=== PATIENT | female | born 1935 | race Caucasian/White ===

== ENCOUNTER 2023-06-28 23:42 | Emergency (ER) | payer OTHER, SELFPAY ==
[2023-06-28 23:58] VITALS: BP 175/67
--- NOTE | 2023-06-29 02:17 | ED.GENMED ---
History of Present Illness
General
Chief Complaint: Fall
Source: patient
Time Seen by Provider: 06/29/23 01:32
Travel History
Have you had any contact with someone who has COVID-19?: No
Do you have any symptoms of coronavirus? Fever > 100 degrees, chills, cough, shortness of breath, sore throat, loss of taste or smell, muscle aches, or headache?: No
History of Present Illness
History of Present Illness:
This 88-year-old female presents to the emergency room for evaluation of a head injury. Patient was in the bathroom when she lost her balance and fell striking the back of her head. She had significant bleeding. She denies any loss of
consciousness. She denies any neck pain. Patient has been ambulatory since the injury.
Past History
Past History
ED Past Medical History: HTN, Hypercholesterolemia, Hypothyroidism and Other (Pernicious anemia, osteoporosis, Graves' ophthalmopathy)
ED Past Surgical History: Orthopedic (Right hip fracture with ORIF 2017, right femoral fracture 2018, epidural steroid injection C7-T1) and Other (Cataract extractions)
Social History
Tobacco: Non-smoker
Alcohol: None
Drug: None
Personal:
Living: with family
Employment: Retired
Family History
Family History: Other (Reviewed and noncontributory)
Phy Exam
Physical Exam
Physical Exam:
General: Awake, Alert, Oriented X3. No acute distress.
Vitals: unremarkable
Head: Stellate laceration occipital scalp with a cumulative length of about 6 cm
Eyes: Pupils equal, EOMI
Throat: Airway intact, no exudates
Neck: Trachea midline, no tenderness palpation along the cervical spine
Lungs: Clear and equal b/l
Heart: Regular rate, no murmurs
Abd: Soft, Nontender, No pulsatile mass
Neuro: Nonfocal
Skin: Warm, dry, no rash
Extremities: pulses equal b/l, no edema
Course
Orders/Labs/Results
Orders:
Orders
06/29/23 00:04
CT Head W/o Iv Contrast Urgent
Comment:
Reason For Exam: fall, head injury
Vital Signs
Initial and Last Documented VS:
Initial Vital Signs
Temp Pulse Resp BP Pulse Ox
97.9 F 68 20 175/67 100
06/28/23 23:58 06/28/23 23:58 06/28/23 23:58 06/28/23 23:58 06/28/23 23:58
Last Documented Vital Signs
Temp Pulse Resp BP Pulse Ox
97.9 F 80 20 119/54 98
06/28/23 23:58 06/29/23 03:00 06/29/23 03:00 06/29/23 03:00 06/29/23 03:00
Procedures
Laceration Closure
Occipital:
Status of Wound: clean
Size of Wound in cm: 6
Description of Wound Edges: ragged and flap-poorly vascularized
Preparation: cleaned with saline and cleaned with Betadine
Anesthesia: 1% Lidocaine with epi
Revision/Debridement: minor revision and irrigate-direct pressure
Wound exploration: explored to base- no FB
Skin Closure Material: 4-0 prolene
Number of sutures: 11
Additional information:
10 simple interrupted sutures placed as well as 1 corner stitch
MDM/Problems Addressed
Differential Diagnosis Includes:
Subdural, subarachnoid, scalp laceration, closed head injury
MDM/Problems Addressed:
Patient CT shows no intracranial injury. She does have a large stellate laceration on the occipital scalp. This was repaired using sutures. Patient denies any significant headache at this time. No pain to palpation of the cervical spine.
*Radiology
Radiology exam reviewed: other (Vision report reviewed, no acute intracranial injury)
*Pulse Oximetry
Patient hypoxic: no
*Critical Care Note
Total Time (30-74mins, 75-104mins- exclusive of procedures): Not Applicable
ED Attending Note
-
Portions of this chart may have been created with voice recognition software.� Occasional wrong word or��sound alike� substitutions may have occurred due to the inherent limitations of voice recognition software.
Discharge Plan
Departure
Patient Disposition: Home (Routine Discharge)
Date of Disposition: 06/29/23
Time of Disposition: 02:17
Patient with high blood pressure during this ER visit?: Yes
Condition: Good
Discharge Problem:
Head injury, Laceration of occipital region of scalp
Instructions: Head Injury in Adults (DC), Laceration Repair With Stitches (DC)
Prescriptions:
No Action
metoprolol succinate 100 MG tablet extended release 24 hr
100 mg PO DAILY
levothyroxine 137 MCG tablet
137 mcg PO DAILY
lisinopril 20 MG tablet
20 mg PO DAILY
oxycodone 5 mg tablet
2.5 mg PO Q8H PRN (Reason: severe pain)
Patient Comments:
01/09/2022: last filled 01/03/22, 6 tabs for 4 days from [facility]#[id number]
indomethacin 50 mg Capsule
50 mg PO TID 3 Days Qty: 9 0RF
nifedipine 30 mg Tablet Extended Release
30 mg PO DAILY 30 Days Qty: 30 0RF
prednisone 50 mg tablet
50 mg PO DAILY 5 Days Qty: 5 0RF
Referrals:
Colleen Alonso MD [Family Provider] -
Activity Restrictions/Additional Instructions:
Stitches should come out in 7 days. Apply antibiotic ointment once or twice a day.
Interventions
Interventions:
*Risk Screen - Suicide Last Done: 06/28/23 23:58
*General Assessment Last Done: 06/28/23 23:58
*Neglect/Abuse Screening Last Done: 06/28/23 23:58
ED- Fall Risk Assessment Last Done: 06/28/23 23:58
*ED COVID-19 Vaccine History Last Done: 06/28/23 23:58
*Nursing Disposition Last Done: 06/29/23 03:15
ED-Musculoskeletal Assessment Last Done: 06/29/23 01:00
ED- Neurological Assessment Last Done: 06/29/23 01:00
ED-Skin Assessment Last Done: 06/29/23 01:00
Discharge Date and Time
Discharge Date/Time: 06/29/23 03:15
[2023-06-29 03:00] VITALS: BP 119/54
== END 2023-06-29 03:15 | disposition home or self-care (01) ==
LOC: EMR 23:42
PROVIDERS: EMERGENCY PHYSICIAN Emergency Medicine; FAMILY PHYSICIAN Family Medicine
DX: S01.01XA Laceration without foreign body of scalp, initial encounter (principal); W19.XXXA Unspecified fall, initial encounter; I10 Essential (primary) hypertension
CPT/HCPCS: 99284; 12032; 70450